=== PATIENT | male | born 2000 | race Caucasian/White ===

== ENCOUNTER 2018-04-29 21:14 | Emergency (ER) | payer BC, OTHER | END 2018-04-29 23:25 | disposition home or self-care (01) | LOC: FTE 21:14 | DX: S69.92XA Unspecified injury of left wrist, hand and finger(s), initial encounter (principal); W18.39XA Other fall on same level, initial encounter; Y92.9 Unspecified place or not applicable | CPT/HCPCS: 29125; 73110-LT; 99283-25 ==